=== PATIENT | female | born 1965 | race Caucasian/White ===

== ENCOUNTER 2017-09-07 16:15 | Emergency (ER) | payer SELFPAY ==
[~2017-09-07] VITALS: Ht 172.7 cm; Wt 108.9 kg
[2017-09-07] MEDS ORDERED: HYDROCODONE/APAP 10MG-325MG TAB PO ONE (16:45)
--- NOTE | 2017-09-07 17:50 | Diagnostic Imaging Report ---
Exam: Cervical spine CT without IV contrast History: Trauma, fall, neck stiffness Comparison studies: None Technique: Axial images were obtained through the cervical region. Coronal and sagittal images reconstructed from the axial data. Intravenous contrast: None Findings: Atlantoaxial articulation: Intact Alignment: Mild cervical kyphosis centered at C5-C6. Cervicomedullary junction: No abnormalities. Patent foramen magnum. Soft tissues: No gross abnormalities. Vertebrae: No fractures, neoplasm or infection. Degenerative changes: C2-C3: Moderate right and mild left facet arthrosis. Patent canal and foramina. C3-4: Moderate right and mild left foraminal stenosis. Patent canal and foramina C4-5: Mild facet arthrosis (left greater than right). Patent canal and foramina. C5-6: Mildly degenerated disc. Disc osteophyte complex indents the thecal sac but does not result in significant canal stenosis. No significant foraminal stenosis. . C6-7: Patent canal and foramina. C7-T1: Patent canal and foramina. Incidental findings: Mild calcified atherosclerosis at the right cervical carotid bulb. IMPRESSION: 1. No cervical spine fracture or subluxation. 2. Mildly degenerated C5-C6 disc and moderate right C2-C3 and C3 facet arthrosis. No significant canal or foraminal stenosis. Cannot evaluate ligament, spinal cord and or vascular abnormalities on the basis of this examination Signed by: Dr. Dilip Payne M.D. on 09/07/2017 5:46 PM
--- NOTE | 2017-09-07 17:57 | Diagnostic Imaging Report ---
PROCEDURE:X-RAY PELVIS, AP VIEW COMPARISON:None. INDICATIONS:FALL FINDINGS: There are no acute displaced fractures, dislocations, lytic or blastic lesions in the pelvis. The bones are well-mineralized. Degenerative changes in the lower lumbosacral spine. Bilateral hip joints are grossly unremarkable. CONCLUSION: No acute abnormalities. Jarek Guillaume M.D. Dictated by: Jarek Guillaume M.D. on 09/07/2017 at 18:07 Electronically approved by: Jarek Guillaume M.D. on 09/07/2017 at 18:07
[2017-09-07] MEDS ORDERED: DIAZEPAM 5 MG TAB PO SCH (18:00)
--- NOTE | 2017-09-07 18:00 | Diagnostic Imaging Report ---
PROCEDURE:X-RAY LUMBAR SPINE, TWO VIEWS COMPARISON:None. INDICATIONS:FALL FINDINGS: There are 5 lumbar-type vertebral bodies. There are no acute, displaced fractures, lytic or blastic lesions. No significant spondylolisthesis. Rotolevoscoliosis, with associated degenerative changes predominantly at L4-L5. The disc-space heights are well-maintained. The sacroiliac joints are unremarkable. Nonobstructive bowel gas pattern. CONCLUSION: No acute displaced fracture or dislocation. CT lumbar spine is recommended if there is history of trauma and clinical concern for occult fractures. Jarek Guillaume M.D. Dictated by: Jarek Guillaume M.D. on 09/07/2017 at 18:09 Electronically approved by: Jarek Guillaume M.D. on 09/07/2017 at 18:09
[2017-09-07] MEDS ORDERED: HYDROCODONE/APAP 10MG-325MG TAB ONE (20:38)
== END 2017-09-07 20:43 | disposition home or self-care (01) ==
LOC: ER 16:15
DX: G89.11 Acute pain due to trauma (principal); M54.5 Low back pain; W17.89XA Other fall from one level to another, initial encounter; Y92.007 Garden or yard of unspecified non-institutional (private) residence as the place of occurrence of the external cause; M41.9 Scoliosis, unspecified
CPT/HCPCS: 72100; 72125; 72170; 99283